=== PATIENT | female | born 1990 | race American Indian/Alaskan Native ===

== ENCOUNTER 2018-02-24 22:37 | Observation (INO) | payer OTHER ==
[2018-02-24 23:04] VITALS: BMI 28.3
[2018-02-24 23:08] VITALS: RESP 18
[2018-02-24] MEDS ORDERED: Sodium Chloride 0.9% 1,000 ML IV STA (23:41)
--- NOTE | 2018-02-24 23:55 | ED PDOC ---
Arrival/HPI - General Chief Complaint: Abdominal Pain Time Seen by Provider: 02/24/18 23:00 Historian: Patient - History of Present Illness Narrative History of Present Illness (Text): 02/24/18 23:49 Liz Andres is a 27 year old female who presents to the emergency department complaining of epigastric pain with associated nausea and bilious vomiting. Patient states she has had similar episodes intermittently over the past few years. Otherwise, patient denies any fever, diarrhea, urinary symptoms, abdominal surgeries, history of gallstones, biliary disease, peptic ulcer disease, or any other complaints. Symptom Onset: Gradual Symptom Course: Unchanged Activities at Onset: Light Context: Home Past Medical History - Provider Review Nursing Documentation Reviewed: Yes - Cardiac Hx Cardiac Disorders: Yes Hx Hypertension: Yes - Endocrine/Metabolic Hx Endocrine Disorders: Yes Hx Diabetes Mellitus Type 1: Yes - Psychiatric Hx Psychophysiologic Disorder: No Hx Substance Use: No - Anesthesia Hx Anesthesia: No Family/Social History - Physician Review Nursing Documentation Reviewed: Yes Family/Social History: Unknown Family HX Smoking Status: Never Smoked Hx Alcohol Use: Yes Frequency of alcohol use: Socially Hx Substance Use: No Allergies/Home Meds Allergies/Adverse Reactions: Allergies No Known Allergies Allergy (Verified 02/24/18 23:04) Review of Systems - Physician Review All systems were reviewed & negative as marked: Yes - Review of Systems Constitutional: Normal. absent: Fevers Eyes: Normal ENT: Normal Respiratory: Normal. absent: SOB, Cough Cardiovascular: Normal. absent: Chest Pain Gastrointestinal: Abdominal Pain, Nausea, Vomiting. absent: Diarrhea Genitourinary Female: Normal. absent: Dysuria, Frequency, Hematuria, Urine Output Changes Musculoskeletal: Normal. absent: Back Pain, Neck Pain Skin: Normal. absent: Rash Neurological: Normal. absent: Headache, Dizziness Endocrine: Normal Hemo/Lymphatic: Normal Psychiatric: Normal Physical Exam Vital Signs Reviewed: Yes Vital Signs Temp Pulse Resp BP Pulse Ox 02/24/18 23:07 99.1 F 100 H 18 150/90 98 Temperature: Afebrile Blood Pressure: Normal Pulse: Regular Respiratory Rate: Normal Appearance: Positive for: Well-Appearing, Non-Toxic, Comfortable Pain Distress: None Mental Status: Positive for: Alert and Oriented X 3 - Systems Exam Head: Present: Atraumatic, Normocephalic Pupils: Present: PERRL Extroacular Muscles: Present: EOMI Conjunctiva: Present: Normal Mouth: Present: Moist Mucous Membranes Neck: Present: Normal Range of Motion Respiratory/Chest: Present: Clear to Auscultation, Good Air Exchange. No: Respiratory Distress, Accessory Muscle Use Cardiovascular: Present: Regular Rate and Rhythm, Normal S1, S2. No: Murmurs Abdomen: Present: Tenderness (Mild epigastric tenderness). No: Distention, Peritoneal Signs Back: Present: Normal Inspection Upper Extremity: Present: Normal Inspection. No: Cyanosis, Edema Lower Extremity: Present: Normal Inspection. No: Edema Neurological: Present: GCS=15, CN II-XII Intact, Speech Normal Skin: Present: Warm, Dry, Normal Color. No: Rashes Psychiatric: Present: Alert, Oriented x 3, Normal Insight, Normal Concentration Medical Decision Making ED Course and Treatment: 02/24/18 23:49 Impression: 27 year old female complaining of epigastric pain, nausea, and bilious vomiting. Plan: --US Abdomen -- Labs -- UA, urine cultures -- IV fluids -- Zofran -- Pepcid -- Reassess and disposition Progress Notes:' CBC wnl Urinalysis +1000 glucose in the urine, +nitrates FS 363 On further questioning, the patient states that she is an IDDM since she was 18 yo, however has not been on medication x8-10 months as she ran out of insurance and can not afford to buy her insulin or see a doctor. Regular insulin 6 units SC ordered. CMP glucoe 377, no AG. 02/25/18 01:27 US Abdomen: Liver is normal in size measuring 16.7 cm. Normal gallbladder wall thickness measuring 1.7 mm. Unremarkable gallbladder. Nondilated common bile duct measuring 2.9 mm. Unremarkable spleen measuring 8.7 cm. Unremarkable IVC. Unremarkable aorta. Unremarkable kidneys. Impression: Unremarkable exam. Electronically signed on Feb 25, 2018 1:20:58 AM EST by: Luiz Roper M.D., Certified by [facility], Neuroradiology On reevaluation, patient reports improvement of symptoms, denies any abdominal pain or nausea. On exam, patient remains awake alert and oriented 3 in no acute distress. Abdomen soft and nontender, repeat neuro exam shows no focal findings. Diagnostic results d/w the patient. Based on history, exam and diagnostic results plan will be for observation, so that the patient can be evaluated by endocrine for consult and better management of her diabetes, which the patient agrees to. Case d/w curator medical museum and Dr. Burton, who both agree with observation under the hospitalist service. - RAD Interpretation Radiology Orders: 02/24/18 23:41 ABDOMEN COMPLETE [US] Stat - Medication Orders Current Medication Orders: Sodium Chloride (Sodium Chloride 0.9%) 1,000 mls @ 1,000 mls/hr IV .Q1H STA Stop: 02/25/18 00:40 Discontinued Medications Famotidine (Pepcid) 20 mg IVP STAT STA Stop: 02/24/18 23:42 Ondansetron HCl (Zofran Inj) 4 mg IVP STAT STA Stop: 02/24/18 23:42 - PA / [employer] / Resident Statement MD/DO has reviewed & agrees with the documentation as recorded. - Scribe Statement The provider has reviewed the documentation as recorded by the Natividad Benjamin Provider Scribe Attestation: All medical record entries made by the Scribe were at my direction and personally dictated by me. I have reviewed the chart and agree that the record accurately reflects my personal performance of the history, physical exam, medical decision making, and the department course for this patient. I have also personally directed, reviewed, and agree with the discharge instructions and disposition. Disposition/Present on Arrival - Present on Arrival Any Indicators Present on Arrival: No History of DVT/PE: No History of Uncontrolled Diabetes: No Urinary Catheter: No History of Decub. Ulcer: No History Surgical Site Infection Following: None - Disposition Have Diagnosis and Disposition been Completed?: Yes Diagnosis: Uncontrolled diabetes mellitus, Abdominal pain, Nausea & vomiting Disposition: HOSPITALIZED Disposition Time: 01:45 Patient Plan: Observation Condition: STABLE Forms: [employer] ([employer])
[2018-02-25 00:07] LABS: BASO # 0.03 K/mm3 (0.0-2.0); BASO % 0.3 % (0.0-3.0); EOS # 0.2 (0.0-0.7); GRAN # 4.6 (1.4-6.5); GRAN % 48.7 % (50.0-68.0); HEMOGLOBIN 13.6 g/dL (12.0-16.0); LYMPH # 4.1 (1.2-3.4); LYMPH % 43.8 % (22.0-35.0); MEAN CELL VOLUME 85.7 fl (80.0-105.0); MEAN CORPUSCULAR HEMOGLOBIN 29.1 pg (25.0-35.0); MEAN CORPUSCULAR HGB CONC 33.9 g/dl (31.0-37.0); MEAN PLATELET VOLUME 10.4 fl (7.0-11.0); MONO # 0.5 (0.1-0.6); MONO % 5.2 % (1.0-6.0); RBC 4.68 10^6/uL (3.5-6.1); RED CELL DISTRIBUTION WIDTH 12.2 % (11.5-14.5); WHITE BLOOD COUNT 9.5 10^3/uL (4.5-11.0)
[2018-02-25 00:08] LABS: URINE BILIRUBIN NEGATIVE (NEGATIVE); URINE BLOOD TRACE-INTACT (NEGATIVE); URINE GLUCOSE (UA) >=1000 mg/dL (NEGATIVE); URINE LEUKOCYTE ESTERASE NEGATIVE Leu/uL (NEGATIVE); URINE PROTEIN TRACE mg/dL (<30 mg/dL); URINE UROBILINOGEN 0.2 E.U./dL (<1 E.U./dL)
[2018-02-25 00:11] LABS: URINE APPEARANCE SL CLOUDY (CLEAR); URINE COLOR YELLOW (YELLOW)
[2018-02-25 00:13] LABS: INR 0.99; PARTIAL THROMBOPLASTIN TIME 27.7 Seconds (25.1-36.5); PROTHROMBIN TIME 11.3 SECONDS (9.4-12.5)
[2018-02-25 00:21] LABS: URINE RBC 0 - 2 /hpf (0-2)
[2018-02-25 00:22] LABS: URINE BACTERIA MANY /hpf; URINE WBC 0 - 2 /hpf (0-6)
[2018-02-25 00:23] LABS: ALBUMIN 3.8 g/dL (3.0-4.8); ALT/SGPT 22 U/L (7-56); AST/SGOT 22 U/L (14-36); BLOOD UREA NITROGEN 11 mg/dL (7-21); CALCIUM 9.3 mg/dL (8.4-10.5); GFR NON-AFRICAN AMERICAN > 60; LIPASE 91 U/L (23-300)
[2018-02-25] MEDS ORDERED: Insulin Regular 1 UNITS/0.01 ML ML SC STA (00:41)
[2018-02-25] MEDS ORDERED: cefTRIAXone 1 gm 1 GM/100 ML BAG IVPB STA (00:42)
--- NOTE | 2018-02-25 01:39 | CP.PCM.HP ---
History of Present Illness - History of Present Illness History of Present Illness: PGY-1 H&P for Dr. Burton CC: Epigastric pain, nausea, and vomiting Patient is a 27 year old female with past medical history of type 1 diabetes (not on insulin due to lack of insurance), presenting with nausea and vomiting that started 6 hours ago. Patient states that she had vomited 5 times ever since. She describes her vomitus to be non-bloody and clear. She is also complaining of epigastric pain that started the same time as her vomiting. She describes the pain to be achy and 5/10 in severity. She states that she ate some chicken for dinner. Patient states that she was diagnosed with type 1 diabetes at age 18 and had been using insulin. However, she has not taken insulin for more than 1 year due to lack of insurance. She admits to have had similar episodes of nausea and vomiting over the past few years. Patient denies any fever, chills, SOB, chest pain, diarrhea, or urinary symptoms. In ED, glucose level was found to be 377. 12 system ROS reviewed and negative except mentioned in HPI. PMHx: type 1 diabetes (not on insulin due to lack of insurance) PSHx: denies Social Hx: Social drinker. Denies tobacco or drug use. Family HX: Dad has HTN Allergies: NKDA Meds: denies PMD: none Present on Admission - Present on Admission Any Indicators Present on Admission: No History of DVT/PE: No History of Uncontrolled Diabetes: Yes Urinary Catheter: No Decubitus Ulcer Present: No Review of Systems - Review of Systems All systems: reviewed and no additional remarkable complaints except Past Patient History - Past Social History Smoking Status: Never Smoked - CARDIAC Hx Cardiac Disorders: Yes Hx Hypertension: Yes - ENDOCRINE/METABOLIC Hx Endocrine Disorders: Yes Hx Diabetes Mellitus Type 1: Yes - PSYCHIATRIC Hx Psychophysiologic Disorder: No Hx Substance Use: No - SURGICAL HISTORY Hx Surgeries: No - ANESTHESIA Hx Anesthesia: No Meds Allergies/Adverse Reactions: Allergies Allergy/AdvReac Type Severity Reaction Status Date / Time No Known Allergies Allergy Verified 02/24/18 23:04 Physical Exam - Constitutional Appears: Well, Non-toxic, No Acute Distress - Head Exam Head Exam: ATRAUMATIC, NORMAL INSPECTION - Eye Exam Eye Exam: EOMI, Normal appearance - ENT Exam ENT Exam: Mucous Membranes Dry - Neck Exam Neck exam: Positive for: Normal Inspection - Respiratory Exam Respiratory Exam: Clear to Auscultation Bilateral, NORMAL BREATHING PATTERN. absent: Rales, Rhonchi, Wheezes, Respiratory Distress - Cardiovascular Exam Cardiovascular Exam: REGULAR RHYTHM, +S1, +S2. absent: Gallop, Rubs, Systolic Murmur - GI/Abdominal Exam GI & Abdominal Exam: Normal Bowel Sounds, Soft, Tenderness (Epigastric region tender to palpation). absent: Distended, Firm, Guarding - Extremities Exam Extremities exam: Positive for: normal inspection. Negative for: calf tenderness, pedal edema - Back Exam Back exam: NORMAL INSPECTION. absent: CVA tenderness (L), CVA tenderness (R) - Neurological Exam Neurological exam: CN II-XII Intact, Oriented x3 - Psychiatric Exam Psychiatric exam: Normal Affect, Normal Mood - Skin Skin Exam: Dry, Intact, Normal Color, Warm Results - Vital Signs Recent Vital Signs: Last Vital Signs Temp 99.1 F 02/24/18 23:07 Pulse 86 02/25/18 01:04 Resp 18 02/25/18 01:04 BP 121/81 02/25/18 01:04 Pulse Ox 100 02/25/18 01:04 - Labs Result Diagrams: 02/24/18 23:55 02/24/18 23:55 Labs: Laboratory Results - last 24 hr 02/24/18 02/24/18 02/24/18 23:40 23:55 23:55 WBC 9.5 RBC 4.68 Hgb 13.6 Hct 40.1 MCV 85.7 MCH 29.1 MCHC 33.9 RDW 12.2 Plt Count 306 MPV 10.4 Gran % 48.7 L Lymph % (Auto) 43.8 H Woodson % (Auto) 5.2 Eos % (Auto) 2.0 Baso % (Auto) 0.3 Gran # 4.60 Lymph # (Auto) 4.1 H Woodson # (Auto) 0.5 Eos # (Auto) 0.2 Baso # (Auto) 0.03 PT 11.3 INR 0.99 APTT 27.7 Sodium Potassium Chloride Carbon Dioxide Anion Gap BUN Creatinine Est GFR ( Amer) Est GFR (Non-Af Amer) Random Glucose Calcium Magnesium Total Bilirubin AST ALT Alkaline Phosphatase Total Protein Albumin Globulin Albumin/Globulin Ratio Lipase Urine Color Yellow Urine Appearance Sl cloudy Urine pH 6.0 Ur Specific [place] 1.020 Urine Protein Trace H Urine Glucose (UA) >=1000 Urine Ketones Negative Urine Blood Trace-intact H Urine Nitrate Positive H Urine Bilirubin Negative Urine Urobilinogen 0.2 Ur Leukocyte Esterase Negative Urine RBC 0 - 2 Urine WBC 0 - 2 Ur Epithelial Cells 1 - 3 Urine Bacteria Many 02/24/18 23:55 WBC RBC Hgb Hct MCV MCH MCHC RDW Plt Count MPV Gran % Lymph % (Auto) [place] % (Auto) Eos % (Auto) Baso % (Auto) Gran # Lymph # (Auto) Woodson # (Auto) Eos # (Auto) Baso # (Auto) PT INR APTT Sodium 136 Potassium 4.1 Chloride 102 Carbon Dioxide 25 Anion Gap 14 BUN 11 Creatinine 0.6 L Est GFR ( Amer) > 60 Est GFR (Non-Af Amer) > 60 Random Glucose 377 H* Calcium 9.3 Magnesium 1.6 L Total Bilirubin 0.4 AST 22 ALT 22 Alkaline Phosphatase 92 Total Protein 7.6 Albumin 3.8 Globulin 3.8 Albumin/Globulin Ratio 1.0 L Lipase 91 Urine Color Urine Appearance Urine pH Ur Specific [place] Urine Protein Urine Glucose (UA) Urine Ketones Urine Blood Urine Nitrate Urine Bilirubin Urine Urobilinogen Ur Leukocyte Esterase Urine RBC Urine WBC Ur Epithelial Cells Urine Bacteria Assessment & Plan - Assessment and Plan (Free Text) Assessment: Patient is a 27 year old female with past medical history of type 1 diabetes (not on insulin due to lack of insurance), presenting with epigastric pain, nausea and vomiting. Plan: Type 1 diabetes mellitus, uncontrolled - Patient has not been on insulin for more than 1 year - Glucose level on admission: 377 - Endorinology consulted, Dr. Gutierrez Cam - ISS low - Accuchecks ACHS - Urine glucose: >1000 - HbA1C: pending - Lipid panel: pending - TSH: pending Nausea and vomiting - Keep patient NPO - IVF: NS @ 100mls/hr - Zofran 4mg IV PRN Epigastric pain - Likely 2/2 multiple vomiting episodes - Abdominal US: unremarkable - Pepcid given in ED Asymptomatic UTI - UA: positive for nitrate, WBC, bacteria - Rocephin given in ED Prophylaxis: - DVT: SCD's Case discussed with Dr. Josephine Guardado, PGY-1
[2018-02-25] MEDS ORDERED: Sodium Chloride 0.9% 1,000 ML IV SCH (03:15)
[2018-02-25] MEDS ORDERED: Magnesium Sulfate 1 gm in D5W 1 GM/100 ML BAG IVPB ONE (03:16)
[2018-02-25 08:48] LABS: ALB/GLOB RATIO 0.9 (1.1-1.8); ALBUMIN 3.4 g/dL (3.0-4.8); ALT/SGPT 24 U/L (7-56); AST/SGOT 19 U/L (14-36); BLOOD UREA NITROGEN 11 mg/dL (7-21); CALCIUM 8.7 mg/dL (8.4-10.5); GFR NON-AFRICAN AMERICAN > 60; HDL CHOLESTEROL 44 mg/dL (29-60)
[2018-02-25 08:58] LABS: LDL CHOLESTEROL 124 mg/dL (0-129)
[2018-02-25 08:59] LABS: BASO # 0.03 K/mm3 (0.0-2.0); BASO % 0.4 % (0.0-3.0); EOS # 0.2 (0.0-0.7); EOS % 1.9 % (1.5-5.0); GRAN # 3.48 (1.4-6.5); GRAN % 44.8 % (50.0-68.0); HEMOGLOBIN 12.8 g/dL (12.0-16.0); LYMPH # 3.7 (1.2-3.4); MEAN CELL VOLUME 86.4 fl (80.0-105.0); MEAN CORPUSCULAR HEMOGLOBIN 28.6 pg (25.0-35.0); MEAN CORPUSCULAR HGB CONC 33.2 g/dl (31.0-37.0); MEAN PLATELET VOLUME 10.7 fl (7.0-11.0); MONO # 0.4 (0.1-0.6); MONO % 4.9 % (1.0-6.0); RBC 4.47 10^6/uL (3.5-6.1); RED CELL DISTRIBUTION WIDTH 12.3 % (11.5-14.5); WHITE BLOOD COUNT 7.8 10^3/uL (4.5-11.0)
[2018-02-25] MEDS: Insulin Reg-LOW-Coverage SC SCH ×4 (09:58→23:20)
[2018-02-25] MEDS ORDERED: Insulin Regular 1 UNITS/0.01 ML ML ONE (10:02)
[2018-02-25] MEDS ORDERED: Insulin Lispro 1 UNITS/0.01 ML SC SCH (11:30)
--- NOTE | 2018-02-25 13:21 | US ---
Date of service: 02/25/2018 HISTORY: epigastric pain COMPARISON: None. TECHNIQUE: Sonographic evaluation of the abdomen. FINDINGS: LIVER: Measures 16.7 cm. Normal echogenicity of the liver parenchyma. No mass. No intrahepatic bile duct dilatation. GALLBLADDER: Gallbladder appears mild to mildly distended without mural thickening or cholelithiasis. COMMON BILE DUCT: Measures 2.9 mm. No stones. No dilatation. PANCREAS: The tail of the pancreas is obscured by overlying bowel gas with remainder unremarkable. RIGHT KIDNEY: Measures 9.9cm. Normal echogenicity. No calculus, mass, or hydronephrosis. LEFT KIDNEY: Measures 11.0cm. Normal echogenicity. No calculus, mass, or hydronephrosis. SPLEEN: Normal in size and contour, measuring 8.7 cm. No mass. AORTA: No aneurysmal dilatation. IVC: Unremarkable. OTHER FINDINGS: None. IMPRESSION: Unremarkable abdominal sonogram.
[2018-02-25] MEDS ORDERED: Insulin Regular 1 UNITS/0.01 ML ML SC SCH (16:30)
[2018-02-25] MEDS: Sodium Chloride 0.9% 1,000 ML IV SCH (18:23)
[2018-02-25] MEDS: Insulin Regular 1 UNITS/0.01 ML ML SC SCH (18:24)
[2018-02-25] MEDS ORDERED: Influenza Vaccine 60 mcg/0.5 mL SYR (4YR UP) IM ONE (20:15)
[2018-02-25] MEDS ORDERED: Pneumococcal 23-Valent Vaccine IM ONE (20:15)
[2018-02-25] MEDS ORDERED: Insulin Human NPH 1 UNITS/0.01 ML SC SCH (22:00)
[2018-02-26] MEDS: Sodium Chloride 0.9% 1,000 ML IV SCH (01:23)
[2018-02-26 06:54] LABS: BASO # 0.02 K/mm3 (0.0-2.0); BASO % 0.3 % (0.0-3.0); EOS # 0.2 (0.0-0.7); EOS % 2.2 % (1.5-5.0); GRAN # 3.09 (1.4-6.5); LYMPH # 4.3 (1.2-3.4); LYMPH % 53.8 % (22.0-35.0); MEAN CELL VOLUME 86.9 fl (80.0-105.0); MEAN CORPUSCULAR HGB CONC 32.3 g/dl (31.0-37.0); MEAN PLATELET VOLUME 10.5 fl (7.0-11.0); MONO # 0.4 (0.1-0.6); MONO % 4.7 % (1.0-6.0); RBC 4.28 10^6/uL (3.5-6.1); RED CELL DISTRIBUTION WIDTH 12.4 % (11.5-14.5); WHITE BLOOD COUNT 7.9 10^3/uL (4.5-11.0)
[2018-02-26 07:07] LABS: ALBUMIN 3.3 g/dL (3.0-4.8); ALT/SGPT 20 U/L (7-56); AST/SGOT 21 U/L (14-36); BLOOD UREA NITROGEN 11 mg/dL (7-21); CALCIUM 8.7 mg/dL (8.4-10.5); GFR NON-AFRICAN AMERICAN > 60
[2018-02-26 08:49] VITALS: BP 119/80; PULSE 78; TEMP 97.9; O2SAT 100
[2018-02-26] MEDS: Insulin Reg-LOW-Coverage SC SCH ×2 (08:54→11:41)
[2018-02-26] MEDS: Insulin Regular 1 UNITS/0.01 ML ML SC SCH (10:32)
--- NOTE | 2018-02-26 13:40 | CP.PCM.DIS ---
<Jovita Lynn - Last Filed: 02/26/18 17:30> Provider - Provider Date of Admission: 02/25/18 01:48 Attending physician: Silvana Walters MD Consults: 02/25/18 03:14 Endocrinology Consult Routine Comment: Consulting Provider: Brenda Perales Consulting Physician: Brenda Perales Reason for Consult: Type 1 DM, uncontrolled 02/25/18 07:33 Diabetic Education Referral Routine Comment: Physician Instructions: Reason For Exam: type I DM- not on insulin 10mo bc of cost Time Spent in preparation of Discharge (in minutes): 60 Diagnosis - Discharge Diagnosis (1) Nausea & vomiting Status: Acute (2) Uncontrolled diabetes mellitus Status: Acute Hospital Course - Lab Results Lab Results: Micro Results 02/24/18 23:40 Urine,Clean Catch Urine Culture - Preliminary Gram Negative Magno Corynebacterium Species Most Recent Lab Values WBC 7.9 10^3/uL (4.5-11.0) 02/26/18 06:20 RBC 4.28 10^6/uL (3.5-6.1) 02/26/18 06:20 Hgb 12.0 g/dL (12.0-16.0) 02/26/18 06:20 Hct 37.2 % (36.0-48.0) 02/26/18 06:20 MCV 86.9 fl (80.0-105.0) 02/26/18 06:20 MCH 28.0 pg (25.0-35.0) 02/26/18 06:20 MCHC 32.3 g/dl (31.0-37.0) 02/26/18 06:20 RDW 12.4 % (11.5-14.5) 02/26/18 06:20 Plt Count 281 10^3/uL (120.0-450.0) 02/26/18 06:20 MPV 10.5 fl (7.0-11.0) 02/26/18 06:20 Gran % 39.0 % (50.0-68.0) L 02/26/18 06:20 Lymph % (Auto) 53.8 % (22.0-35.0) H 02/26/18 06:20 Apache % (Auto) 4.7 % (1.0-6.0) 02/26/18 06:20 Eos % (Auto) 2.2 % (1.5-5.0) 02/26/18 06:20 Baso % (Auto) 0.3 % (0.0-3.0) 02/26/18 06:20 Gran # 3.09 (1.4-6.5) 02/26/18 06:20 Lymph # (Auto) 4.3 (1.2-3.4) H 02/26/18 06:20 [place] # (Auto) 0.4 (0.1-0.6) 02/26/18 06:20 Eos # (Auto) 0.2 (0.0-0.7) 02/26/18 06:20 Baso # (Auto) 0.02 K/mm3 (0.0-2.0) 02/26/18 06:20 PT 11.3 SECONDS (9.4-12.5) 02/24/18 23:55 INR 0.99 02/24/18 23:55 APTT 27.7 Seconds (25.1-36.5) 02/24/18 23:55 Sodium 140 mmol/L (132-148) 02/26/18 06:20 Potassium 3.9 mmol/L (3.6-5.0) 02/26/18 06:20 Chloride 109 mmol/L (98-107) H 02/26/18 06:20 Carbon Dioxide 25 mmol/L (21-33) 02/26/18 06:20 Anion Gap 9 (10-20) L 02/26/18 06:20 BUN 11 mg/dL (7-21) 02/26/18 06:20 Creatinine 0.5 mg/dl (0.7-1.2) L 02/26/18 06:20 Est GFR ( Amer) > 60 02/26/18 06:20 Est GFR (Non-Af Amer) > 60 02/26/18 06:20 POC Glucose (mg/dL) 205 mg/dL (65-110) H 02/26/18 11:24 Random Glucose 127 mg/dL (70-110) H 02/26/18 06:20 Hemoglobin A1c 12.5 % (4.2-6.5) H 02/25/18 07:40 Calcium 8.7 mg/dL (8.4-10.5) 02/26/18 06:20 Phosphorus 3.6 mg/dL (2.5-4.5) 02/25/18 07:40 Magnesium 1.9 mg/dL (1.7-2.2) 02/25/18 07:40 Total Bilirubin 0.5 mg/dL (0.2-1.3) 02/26/18 06:20 AST 21 U/L (14-36) 02/26/18 06:20 ALT 20 U/L (7-56) 02/26/18 06:20 Alkaline Phosphatase 64 U/L (38-126) 02/26/18 06:20 Total Protein 6.6 g/dL (5.8-8.3) 02/26/18 06:20 Albumin 3.3 g/dL (3.0-4.8) 02/26/18 06:20 Globulin 3.3 gm/dL 02/26/18 06:20 Albumin/Globulin Ratio 1.0 (1.1-1.8) L 02/26/18 06:20 Triglycerides 87 mg/dL (35-160) 02/25/18 07:40 Cholesterol 195 mg/dL (130-200) 02/25/18 07:40 LDL Cholesterol Direct 124 mg/dL (0-129) 02/25/18 07:40 HDL Cholesterol 44 mg/dL (29-60) 02/25/18 07:40 Lipase 91 U/L (23-300) 02/24/18 23:55 TSH 3rd Generation 0.97 mIU/mL (0.46-4.68) 02/25/18 07:40 Urine Color Yellow (YELLOW) 02/24/18 23:40 Urine Appearance Sl cloudy (CLEAR) 02/24/18 23:40 Urine pH 6.0 (4.7-8.0) 02/24/18 23:40 Ur Specific Alta 1.020 (1.005-1.035) 02/24/18 23:40 Urine Protein Trace mg/dL (<30 mg/dL) H 02/24/18 23:40 Urine Glucose (UA) >=1000 mg/dL (NEGATIVE) 02/24/18 23:40 Urine Ketones Negative mg/dL (NEGATIVE) 02/24/18 23:40 Urine Blood Trace-intact (NEGATIVE) H 02/24/18 23:40 Urine Nitrate Positive (NEGATIVE) H 02/24/18 23:40 Urine Bilirubin Negative (NEGATIVE) 02/24/18 23:40 Urine Urobilinogen 0.2 E.U./dL (<1 E.U./dL) 02/24/18 23:40 Ur Leukocyte Esterase Negative Se/uL (NEGATIVE) 02/24/18 23:40 Urine RBC 0 - 2 /hpf (0-2) 02/24/18 23:40 Urine WBC 0 - 2 /hpf (0-6) 02/24/18 23:40 Ur Epithelial Cells 1 - 3 /hpf (0-5) 02/24/18 23:40 Urine Bacteria Many /hpf (NONE) 02/24/18 23:40 - Hospital Course Hospital Course: This is a 27 year old female with past medical history of type 1 diabetes (not on insulin due to lack of insurance), presenting with nausea and vomiting that started 6 hours ago. Patient states that she had vomited 5 times ever since. She describes her vomitus to be non-bloody and clear. Patient's blood sugars found to be uncontrolled, 377. Patient states that she has stopped taking insulin for more than a year since she lost her insurance. Patient admitted for nausea, vomiting, uncontrolled DM. HgbA1C found to be 12.5. Nausea, vomiting, epigastric pain improved with pepcid, reglan. Abdominal US unremarkable. Patient advised to take 6 small meals, low carbohydrate based. electron beam machine welder setter Ingrid Maynard saw the patient, gave her a glucometer, educated her on resources in the community for low cost insulin. Dr Perales, endocrinology consulted, recommended starting NPH 20 units at bedtime and regular insulin 10 units bid. Patient was hydrated with IV fluids. Patient was sent home on NPH and regular insulin, given diabetic supplies (syringes, needles, alcohol swabs). [facility] pharmacist, Barrie, made aware of patient's financial constraints. He gave patient the required supplies at minimal cost. Patient has an appt at [facility] clinic to establish primary care on March 04. Patient will also follow up with Dr Perales in 1 week. Case seen and discussed with attending, Dr Walters. Discharge Exam - Head Exam Head Exam: ATRAUMATIC, NORMAL INSPECTION - Eye Exam Eye Exam: EOMI, PERRL. absent: Conjunctival injection, Nystagmus, Scleral icterus Pupil Exam: NORMAL ACCOMODATION, PERRL. absent: Irregular, Miosis, Mydriatic, Unequal - ENT Exam ENT Exam: Mucous Membranes Moist - Neck Exam Neck exam: Full Rom - Respiratory Exam Respiratory Exam: Clear to PA & Lateral, NORMAL BREATHING PATTERN. absent: Accessory Muscle Use, Chest Wall Tenderness, Wheezes, Respiratory Distress, Stridor - Cardiovascular Exam Cardiovascular Exam: RRR, +S1, +S2. absent: Systolic Murmur - GI/Abdominal Exam GI & Abdominal Exam: Normal Bowel Sounds, Soft. absent: Distended, Firm, Guarding, Organomegaly, Pulsatile Mass, Rebound, Rigid, Tenderness - Extremities Exam Extremities exam: normal inspection - Back Exam Back exam: NORMAL INSPECTION - Neurological Exam Neurological exam: Alert, Oriented x3 - Psychiatric Exam Psychiatric exam: Normal Affect, Normal Mood - Skin Skin Exam: Dry, Normal Color, Warm Discharge Plan - Discharge Medications Prescriptions: Insulin Regular [HumuLIN R] 10 units SC BID #600 unit Insulin Human NPH [Humulin N] 20 units SC HS #600 unit - Follow Up Plan Condition: STABLE Disposition: HOME/ ROUTINE Instructions: Pneumococcal Conjugate Vaccine (13-Valent), Diabetes Type 1, Adult (DC), Diabetes Diet , Blood Glucose Monitoring, Influenza Virus Vaccine (Inactivated) Additional Instructions: Please follow up with [facility] on March 04 at 1:30pm. Follow up urine culture results over there. Take your insulin as prescribed. You will need to check your sugars regularly. You are also given diabetic supplies like syringes, needles and alcohol swabs. Please follow up with Dr. Perales, sand cutting machine operator, within 1 week of discharge. Take small meals to avoid nausea, vomiting. Eat low carbohydrate, low sugar diet. If your symptoms return, please go to the nearest emergency department. Referrals: [facility] at [facility] [Outside] Brenda Perales MD [Medical Doctor] - <Silvana Walters - Last Filed: 02/27/18 10:43> Provider - Provider Date of Admission: 02/25/18 01:48 Attending physician: Silvana Walters MD Consults: 02/25/18 03:14 Endocrinology Consult Routine Comment: Consulting Provider: Brenda Perales Consulting Physician: Brenda Perales Reason for Consult: Type 1 DM, uncontrolled 02/25/18 07:33 Diabetic Education Referral Routine Comment: Physician Instructions: Reason For Exam: type I DM- not on insulin 10mo bc of cost Hospital Course - Lab Results Lab Results: Micro Results 02/24/18 23:40 Urine,Clean Catch Urine Culture - Preliminary Klebsiella Pneumoniae Ssp Pneu Corynebacterium Species Most Recent Lab Values WBC 7.9 10^3/uL (4.5-11.0) 02/26/18 06:20 RBC 4.28 10^6/uL (3.5-6.1) 02/26/18 06:20 Hgb 12.0 g/dL (12.0-16.0) 02/26/18 06:20 Hct 37.2 % (36.0-48.0) 02/26/18 06:20 MCV 86.9 fl (80.0-105.0) 02/26/18 06:20 MCH 28.0 pg (25.0-35.0) 02/26/18 06:20 MCHC 32.3 g/dl (31.0-37.0) 02/26/18 06:20 RDW 12.4 % (11.5-14.5) 02/26/18 06:20 Plt Count 281 10^3/uL (120.0-450.0) 02/26/18 06:20 MPV 10.5 fl (7.0-11.0) 02/26/18 06:20 Gran % 39.0 % (50.0-68.0) L 02/26/18 06:20 Lymph % (Auto) 53.8 % (22.0-35.0) H 02/26/18 06:20 Apache % (Auto) 4.7 % (1.0-6.0) 02/26/18 06:20 Eos % (Auto) 2.2 % (1.5-5.0) 02/26/18 06:20 Baso % (Auto) 0.3 % (0.0-3.0) 02/26/18 06:20 Gran # 3.09 (1.4-6.5) 02/26/18 06:20 Lymph # (Auto) 4.3 (1.2-3.4) H 02/26/18 06:20 [place] # (Auto) 0.4 (0.1-0.6) 02/26/18 06:20 Eos # (Auto) 0.2 (0.0-0.7) 02/26/18 06:20 Baso # (Auto) 0.02 K/mm3 (0.0-2.0) 02/26/18 06:20 PT 11.3 SECONDS (9.4-12.5) 02/24/18 23:55 INR 0.99 02/24/18 23:55 APTT 27.7 Seconds (25.1-36.5) 02/24/18 23:55 Sodium 140 mmol/L (132-148) 02/26/18 06:20 Potassium 3.9 mmol/L (3.6-5.0) 02/26/18 06:20 Chloride 109 mmol/L (98-107) H 02/26/18 06:20 Carbon Dioxide 25 mmol/L (21-33) 02/26/18 06:20 Anion Gap 9 (10-20) L 02/26/18 06:20 BUN 11 mg/dL (7-21) 02/26/18 06:20 Creatinine 0.5 mg/dl (0.7-1.2) L 02/26/18 06:20 Est GFR ( Amer) > 60 02/26/18 06:20 Est GFR (Non-Af Amer) > 60 02/26/18 06:20 POC Glucose (mg/dL) 205 mg/dL (65-110) H 02/26/18 11:24 Random Glucose 127 mg/dL (70-110) H 02/26/18 06:20 Hemoglobin A1c 12.5 % (4.2-6.5) H 02/25/18 07:40 Calcium 8.7 mg/dL (8.4-10.5) 02/26/18 06:20 Phosphorus 3.6 mg/dL (2.5-4.5) 02/25/18 07:40 Magnesium 1.9 mg/dL (1.7-2.2) 02/25/18 07:40 Total Bilirubin 0.5 mg/dL (0.2-1.3) 02/26/18 06:20 AST 21 U/L (14-36) 02/26/18 06:20 ALT 20 U/L (7-56) 02/26/18 06:20 Alkaline Phosphatase 64 U/L (38-126) 02/26/18 06:20 Total Protein 6.6 g/dL (5.8-8.3) 02/26/18 06:20 Albumin 3.3 g/dL (3.0-4.8) 02/26/18 06:20 Globulin 3.3 gm/dL 02/26/18 06:20 Albumin/Globulin Ratio 1.0 (1.1-1.8) L 02/26/18 06:20 Triglycerides 87 mg/dL (35-160) 02/25/18 07:40 Cholesterol 195 mg/dL (130-200) 02/25/18 07:40 LDL Cholesterol Direct 124 mg/dL (0-129) 02/25/18 07:40 HDL Cholesterol 44 mg/dL (29-60) 02/25/18 07:40 Lipase 91 U/L (23-300) 02/24/18 23:55 TSH 3rd Generation 0.97 mIU/mL (0.46-4.68) 02/25/18 07:40 Urine Color Yellow (YELLOW) 02/24/18 23:40 Urine Appearance Sl cloudy (CLEAR) 02/24/18 23:40 Urine pH 6.0 (4.7-8.0) 02/24/18 23:40 Ur Specific Alta 1.020 (1.005-1.035) 02/24/18 23:40 Urine Protein Trace mg/dL (<30 mg/dL) H 02/24/18 23:40 Urine Glucose (UA) >=1000 mg/dL (NEGATIVE) 02/24/18 23:40 Urine Ketones Negative mg/dL (NEGATIVE) 02/24/18 23:40 Urine Blood Trace-intact (NEGATIVE) H 02/24/18 23:40 Urine Nitrate Positive (NEGATIVE) H 02/24/18 23:40 Urine Bilirubin Negative (NEGATIVE) 02/24/18 23:40 Urine Urobilinogen 0.2 E.U./dL (<1 E.U./dL) 02/24/18 23:40 Ur Leukocyte Esterase Negative Se/uL (NEGATIVE) 02/24/18 23:40 Urine RBC 0 - 2 /hpf (0-2) 02/24/18 23:40 Urine WBC 0 - 2 /hpf (0-6) 02/24/18 23:40 Ur Epithelial Cells 1 - 3 /hpf (0-5) 02/24/18 23:40 Urine Bacteria Many /hpf (NONE) 02/24/18 23:40 Attending/Attestation - Attestation I have personally seen and examined this patient.: Yes I have fully participated in the care of the patient.: Yes I have reviewed all pertinent clinical information, including history, physical exam and plan: Yes Notes (Text): 02/26/18 27 year old female with past medical history of diabetes and medication nonco mpliance who presented with complaint of nausea, vomiting and uncontrolled diabetes. US abd/pelvis was unremarkable. She was started on fluids and insulin with improvement of blood sugars. She received diabetic education and counselled on importance of medication compliance and outpatient follow up. UCX was positive for Klebsiella but she denied any UTI symptoms and was afebrile without leukocytosis and was not started on antibiotics for asymptomatic bacteruria. Patient is discharged home to follow up with [facility]. Silvana Walters MD Hospitalist.
== END 2018-02-26 16:49 | disposition home or self-care (01) ==
LOC: ED 22:37 → ERH 02-25 01:48 → 5RNO 02-25 21:26
PROVIDERS: ADMIT Hospitalist; ATTEND Internal Medicine
DX: E10.9 Type 1 diabetes mellitus without complications (principal); R11.2 Nausea with vomiting, unspecified; Z91.14 Patient's other noncompliance with medication regimen; R10.13 Epigastric pain; Z79.4 Long term (current) use of insulin
CPT/HCPCS: 36415; 76700; 80053; 80061; 81001; 81003; 81025; 82948; 83036; 83690; 83735; 84100; 84443; 85025; 85610; 85730; 87086; 87181; 96361; 96365; 96367; 96375; 99285; G0378; J0696; J2405; J3475; J7030